=== PATIENT | female | born 1980 | race African-American/Black ===

== ENCOUNTER 2017-03-05 16:52 | Emergency (ER) | payer BC, OTHER ==
[~2017-03-05] VITALS: Ht 167.6 cm; Wt 72.6 kg
[2017-03-05] MEDS ORDERED: IRON PO (17:20)
[2017-03-05 18:00] LABS: CALCIUM 8.6 mg/dL (8.5-10.1); CREATININE 0.8 mg/dL (0.6-1.0); POTASSIUM 3.2 mmol/L (3.5-5.1)
[2017-03-05 18:26] LABS: HEMATOCRIT 22.2 % (37.0-47.0); WBC 6.2 thou/uL (4.0-11.0)
[2017-03-05 18:28] LABS: MCH 18.9 pg (26.0-34.0); MCHC 31.5 g/dL (28.0-37.0); MCV 60.1 fL (80.0-100.0); PLATELET COUNT 191 thou/uL (150-400); RDW 23.4 % (10.5-14.5)
[2017-03-05 18:33] LABS: MANUAL DIFF YES
[2017-03-05 19:05] LABS: ABSOLUTE NEUTROPHILS 3.8 thou/uL (1.4-8.2); ANISOCYTOSIS 3+; HYPOCHROMASIA 3+; MICROCYTES 3+; SCHISTOCYTES 2+; TOTAL CELL COUNT 100
[2017-03-05] MEDS ORDERED: NORCO 5-325 TA1 EACH PO (20:09)
[2017-03-05 20:12] VITALS: BP 135/79
== END 2017-03-05 20:11 | disposition home or self-care (01) ==
LOC: ER 16:52
PROVIDERS: Nurse Practitioner
DX: D25.9 Leiomyoma of uterus, unspecified (principal); D64.9 Anemia, unspecified